=== PATIENT | male | born 1975 | race Caucasian/White ===

== ENCOUNTER → 2021-02-05 10:38 | Outpatient (CLI) | payer MEDICAID, SELFPAY ==
--- NOTE | 2021-02-05 10:43 | ART_ITS ---
Reason For Study: Pain in unspecified lower leg Procedure A bilateral lower extremity continuous wave Doppler with analog waveform analysis,segmental pressures,and ankle brachial indexes with exercise. Left Segmental Pressures Left brachial= 153mmHg. Left posterior tibial artery = 183mmHg. Left dorsalis pedis artery = 174mmHg. Left digit = 149 mmHg. The left dorsalis pedis waveforms are triphasic. The left posterior tibial artery waveforms are triphasic. Right Segmental Pressures Right brachial= 146mmHg. Right posterior tibial artery = 174mmHg. Right dorsalis pedis artery = 181mmHg. Right digit = 127 mmHg. The right dorsalis pedis waveforms are triphasic. The right posterior tibial artery waveforms are triphasic. Indices The right ankle brachial index by the dorsalis pedis is 1.18. The right ankle brachial index by the posterior tibial artery is 1.14. The right digital-brachial index is 0.83. The right post exercise ankle brachial index is 1.32. The left ankle brachial index by the dorsalis pedis is 1.14. The left ankle brachial index by the posterior tibial artery is 1.20. The left digital-brachial index is 0.97. The left post exercise ankle brachial index is 1.27. VL/Lower Ext Art Exam w/ Exercise Interpretation Summary Triphasic Doppler waveforms are noted at ankle level bilaterally. Pulse-volume recordings appear satisfactory at all levels bilaterally, including low-thigh, calf, ankle, and d igital levels. Resting ankle-brachial indices are normal bilaterally. Digital-brachial indices are normal bilaterally. The patient was ambulated on a treadmill for 5 minutes at 2 miles per hour and a 5% grade, following which ankle pressures augmented bilaterally, a normal physiolo gical response. There is no evidence of significant arterial occlusive disease in the lower ext remities bilaterally. Ordering Physician: Alfreda Woods Referring Physician: [facility] Performed By: Kitty Williamson RVT and Student
== END ==
PROVIDERS: Referring Provider Nurse Practitioner Adult Health; Visit Provider Nurse Practitioner Adult Health
DX: M79.669 Pain in unspecified lower leg (principal)
CPT/HCPCS: 93924

== ENCOUNTER → 2021-08-07 11:15 | Outpatient (CLI) | payer MEDICAID, SELFPAY ==
--- NOTE | 2021-08-07 11:19 | EKG12_ITS ---
Test Reason : HYTN Blood Pressure : / mmHG Vent. Rate : 071 BPM Atrial Rate : 071 BPM P-R Int : 134 ms QRS Dur : 098 ms QT Int : 382 ms P-R-T Axes : 019 115 046 degrees QTc Int : 415 ms Normal sinus rhythm Left posterior fascicular block Abnormal ECG Confirmed by MICHELE ELDRIDGE, PRASHANT ([id number]), newspaper managing editor ERIK MARION ([id number]) on 08/08/2021 11:42:00 AM Referred By: Alfreda Woods Confirmed By:PRASHANT BAUTISTA MD
== END ==
PROVIDERS: Referring Provider Nurse Practitioner Adult Health; Visit Provider Nurse Practitioner Adult Health
DX: I10 Essential (primary) hypertension (principal)
CPT/HCPCS: 93005

== ENCOUNTER 2022-05-23 11:00 | Outpatient (RCR) | payer OTHER, MEDICAID, SELFPAY ==
--- NOTE | 2022-04-23 11:56 | HP.OTEVAL_ITS ---
Patient's Visit Information JOSE SÁNCHEZ is a 47 year old M, referred to Occupational Therapy by MAITE Ryan, with a diagnosis of left lateral eipcondylitis. 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 pt states he has not iced his arm- DOI 04/04/22. pt is left handed - pt has worked at [employer] for two years- pt would like to return to his PLOF. - ADLs Miscellaneous: Write Comments: pt states picking up his dtr does hurt - Pain Left elbow 0 Pain Intensity Range: 3 - ROM Elbow: right 0/140 left 0/140 Forearm: right/left WNL - Strength Gold Tooler: right 70# left 20# (with discomfort) Lateral Pinch: right 16# left 10# Tripod Pinch: right 14# left 6# (with pain) Strength Comments: elbow straight right 60# left elbow straight 15#. 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 Goal:: pt will report pain no greater than 3/10 with use of left UE with work tasks by d.c. Goal:: pt will demo understanding of lat. epi precautions by end of 1st session to prevent further injury. - Rehabilitation General Assessment: pt demo with positive symptoms of left lateral eipi- pt demo wtih weakness and pain limiting his IND with ADls and IADLs at this time- and with work tasks. pt would benefit from skilled OT service 2-3x week for 4 weeks to decrease pain- strength left UE and ed. on ergo to prevent injury of left elbow to return pt to his PLOF. pt demo understanding and agrees to POC. Rehabilitation Potential: Good - Anticipated Interventions A/AAROM/PROM, Strengthening, Triggerpoint Release, Modalities, Joint Protection/Energy Conservation, Ergonomic Education, Education re Diagnosis - Visit Plan Frequency: 2-3x /Week Duration: 4 Weeks TEXT: Thank you for the opportunity to evaluate your patient. For Medicare and Medicare HMO plans, please review the plan of care and approve it. It will need to be FAXED BACK to us at [phone] for Medicare purposes. Please let me know if there are questions or concerns regarding this plan of care. Physician Signature: Date:
--- NOTE | 2022-05-23 11:26 | OTREVAL_ITS ---
MAITE Ryan, It has been my pleasure to treat JOSE SÁNCHEZ over the last 10 visits for left lateral eipcondylitis. Please see the progress note below for an update on the occupational therapy plan of care! 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 elbow straight 20# ( with pain). indication of continued symptoms of lat. epi pain. pt admits not consistent with his HEP - but is wearing the braces-. therapy is returning pt to for possible injection due to limited gains in progress and compliance with his HEP. therapist advised to keeping with using the braces and along with shoulder isometrics and eccentric ex. Plan Visits in this POC: 12 Plan: Return to for possible injection due to lingering pain decreasing use of left UE. 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 Goal:: pt will report pain no greater than 3/10 with use of left UE with work tasks by d.c. Goal:: pt will demo understanding of lat. epi precautions by end of 1st session to prevent further injury. Anticipated Interventions Anticipated Interventions: A/AAROM/PROM, Strengthening, Triggerpoint Release, Modalities, Joint Protection/Energy Conservation, Ergonomic Education, Education re Diagnosis Please do not hesitate to contact me at [phone] by phone or if you have questions or concerns regarding this new plan of care! Sincerely, Meghan Thompson, OTR/L, CHT
--- NOTE | 2022-07-16 14:58 | HP.OTDCNRP_ITS ---
JOSE SÁNCHEZ was seen in my office for initial evaluation on 04/23/22. The following Plan of Care was established for this patient: Initial Frequency: 2-3x /Week Initial Duration: 4 Weeks Plan: Return to for possible injection due to lingering pain decreasing use of left UE. Anticipated Interventions: A/AAROM/PROM, Strengthening, Triggerpoint Release, Modalities, Joint Protection/Energy Conservation, Ergonomic Education, Education re Diagnosis This patient was last seen in our office 05/23/22. Pertinent comments regarding their Occupational therapy will appear below: Pt seen for 10 OT sessions with lateral epicondylitis- pt made gains and was imp roving- advised to return to for possible cortisone injection or imaging. pt has not returned at this time and will be d/c due to time lapse in services. At this point I will be discontinuing this patient from occupational therapy. I would be happy to see this patient again in the future if found appropriate by the physician. Thank you! Meghan Thompson, OTR/L, CHT
== END 2022-05-23 19:00 | disposition home or self-care (01) ==
LOC: OT 11:00
PROVIDERS: Referring Provider Physician Assistant; Visit Provider Physician Assistant
DX: M77.12 Lateral epicondylitis, left elbow (principal)
CPT/HCPCS: 97110; 97166; 97530

== ENCOUNTER → 2024-05-17 | Outpatient (CLI) | payer MEDICAID, SELFPAY ==
[2024-05-17 17:07] LABS: Absolute Lymphocyte Count 1.43 X10^3/uL (0.83-4.51); Absolute Neutrophil Count 4.3 X10^3/uL (2.0-7.7); Basophil# 0.04 X10^3/uL; Basophil% 0.6 % (0-1); Eosinophil# 0.08 X10^3/uL; Eosinophils% 1.3 % (0-5); Hematocrit 48.4 % (40-54); Hemoglobin 16.1 g/dL (13.0-16.5); Lymphocyte # 1.43 X10^3/ul (0.83-4.51); Lymphocyte % 22.5 % (19-41); Mean Corp Hgb Conc 33.3 g/dL (32-36); Mean Corpuscular Volume 87.1 fL (80-94); Mean Platelet Vol. 9.2 fl (6.2-12.0); Monocyte# 0.47 X10^3/uL; Monocyte% 7.4 % (0-10); NRBC Flagged by Analyzer 0 % (0-5); Neutrophil # 4.31 X10^3/uL (2.7-7.7); Neutrophil % 67.9 % (47-70); Platelet Count 232 K/mm3 (150-450); RBC Distribution Width CV 13.2 % (11.6-14.6); RBC Distribution Width SD 41.9 fl (35.1-43.9); Red Blood Count 5.56 M/mm3 (4.6-6.2); White Blood Count 6.4 K/mm3 (4.4-11.0)
[2024-05-17 17:27] LABS: Hemoglobin A1c 5.5 % (3.8-5.6)
[2024-05-17 17:34] LABS: ALB/GLOB Ratio 1.1 RATIO (0.9-2.4); AST(SGOT) 33 U/L (15-37); Alanine Aminotransfer ALT/SGPT 60 U/L (16-61); Albumin, Serum 4.1 g/dL (3.2-5.0); Alkaline Phosphatase 61 U/L (45-117); Anion Gap 7 (5-15); BUN 11 mg/dL (7-18); BUN/Creat Ratio 11.7 RATIO (10-20); Calcium,Total 9.5 mg/dL (8.5-10.1); Chloride 108 mmol/L (98-107); Cholesterol 224 mg/dL (200); Creatinine, Serum 0.94 mg/dL (0.70-1.30); EST Glomerular Filtration Rate 92 mL/min (>60); Est Glom Filt Rate - Afr Amer 111 mL/min (>60); Globulin 3.6 g/dL (2.2-4.2); Glucose 101 mg/dL (74-106); High Density Lipoprotein 41 mg/dL; Potassium 3.8 mmol/L (3.5-5.1); Protein, Total 7.7 g/dL (6.4-8.2); Sodium Level 139 mmol/L (136-145); Thyroid Stim Hormone (TSH) 0.523 uIU/mL (0.358-3.740); Triglycerides 142 mg/dL; Very Low Density Lipoprotein 28 mg/dL (5-40)
== END | disposition home or self-care (01) ==
LOC: VSLAB 13:57
PROVIDERS: PCP Nurse Practitioner Family; Visit Provider Nurse Practitioner Family
DX: I10 Essential (primary) hypertension (principal)
CPT/HCPCS: 36415; 80053; 80061; 83036; 84443; 85025

== ENCOUNTER 2024-06-11 17:10 | Emergency (ER) | payer MEDICAID, SELFPAY ==
[2024-06-11] VITALS (8 sets, daily range): BP systolic 148–193; BP diastolic 84–118; PULSE 57–79; RESP 16–18; TEMP 36.6; O2SAT 97–100; BMI 32.8
--- NOTE | 2024-06-11 17:18 | EKG12_ITS ---
Test Reason : CP Blood Pressure : / mmHG Vent. Rate : 069 BPM Atrial Rate : 069 BPM P-R Int : 120 ms QRS Dur : 096 ms QT Int : 392 ms P-R-T Axes : -01 108 049 degrees QTc Int : 420 ms Normal sinus rhythm Rightward axis Borderline ECG Confirmed by MICHELE ELDRIDGE, PRASHANT ([id number]), proposal editor CHIRAG CARRASCO ([id number]) on 06/13/2024 9:39:14 AM Referred By: PIPPA/TA Confirmed By:PRASHANT BAUTISTA MD
--- NOTE | 2024-06-11 17:18 | RAD_ITS ---
EXAM: XR CHEST, 1 VIEW CLINICAL INDICATION: chest pain TECHNIQUE: Frontal view of the chest. COMPARISON: No relevant prior studies available. FINDINGS: LUNGS AND PLEURAL SPACES: Unremarkable. No consolidation or edema. No pneumothorax. No effusion. HEART: Unremarkable. Cardiac silhouette not enlarged. MEDIASTINUM: Central airways and mediastinal contour are unremarkable. BONES/JOINTS: Unremarkable. No acute fracture. SOFT TISSUES: Unremarkable. RAD/Chest 1 View (Portable) IMPRESSION: No radiographic evidence of acute cardiopulmonary disease. Electronically Signed: Elizabeth Tobar MD at 19:50 EDT ,
--- NOTE | 2024-06-11 17:27 | ED.VIS.CHEST ---
HPI History of Present Illness Chief Complaint: Chest Pain [facility] Medical History Abnormal EKG Anxiety and depression Erectile dysfunction Essential hypertension Hyperlipidemia Left lateral epicondylitis Multiple sclerosis Home Medications ?Medication ?Instructions ?Recorded ?Last Taken ?Type lisinopril 30 mg tablet 30 mg PO DAILY 05/26/22 Unknown History bupropion HCl 150 mg 24 hr tablet, 150 mg PO DAILY 06/11/24 Unknown History extended release Allergy/AdvReac Type Severity Reaction Status Date / Time No Known Allergies Allergy Verified 06/11/24 17:11 Social History Smoking Status: Current every day smoker tobacco type: cigarettes substance use type: former substance user and methamphetamine EXAM Physical Exam Const Vital Signs: 06/11/24 17:11 06/11/24 17:32 06/11/24 17:36 Temperature 97.9 F Temperature Source Temporal Pulse Rate 79 68 Respiratory Rate 18 Blood Pressure 193/110 H 148/118 H Blood Pressure Mean 137 Pulse Ox 100 99 Oxygen Delivery Method Room Air Room Air 06/11/24 17:42 06/11/24 18:11 06/11/24 18:58 Temperature Temperature Source Pulse Rate 72 58 L 66 Respiratory Rate 16 16 16 Blood Pressure 162/102 H 148/84 H 155/99 H Blood Pressure Mean 122 105 117 Pulse Ox 97 99 98 Oxygen Delivery Method Room Air Room Air Room Air 06/11/24 19:30 Temperature Temperature Source Pulse Rate 57 L Respiratory Rate 16 Blood Pressure 155/99 H Blood Pressure Mean 117 Pulse Ox 98 Oxygen Delivery Method Room Air MDM MDM MDM Narrative Medical decision making narrative: HISTORY OF PRESENT ILLNESS: 49-year-old male presents with chest pain. He states is more like left arm pain. Notes it started after taking his blood pressure yesterday. Notes his blood pressure was in the 170s systolic over 110s diastolic. States been compliant with his home lisinopril. Denies family history of early cardiac . Denies diabetes but endorses hypertension hyperlipidemia. Denies PE risk factors. The patient denies recent surgery in the last 4 weeks or immobilization in the last 3 days, denies previous diagnosis of DVT or PE, hemoptysis, unilateral leg swelling or malignancy with treatment the last 6 months or palliative. No estrogen use noted. Denies aortic dissection risk factors. Patient denies sudden onset of pain, no tearing sensation, no migratory symptoms, no new numbness, weakness or loss of sensation. Patient denies family history or personal history of Connective tissue disorders (Marfan's Syndrome, Matt Danlos etc). Denies any bleeding diathesis. Cough. Shortness of breath. REVIEW OF SYSTEMS: Pertinent positives: Chest pain Pertinent negatives: Focal weakness, leg swelling, cough, shortness of breath, vomiting PHYSICAL EXAM: Nursing triage notes reviewed, Vital signs reviewed Constitutional: please see mdm HENT: MMM Eyes: Pupils equal round and reactive to light, Extraocular muscles intact Neck: No stridor, no JVD, full neck ROM Lungs: Clear to auscultation, No wheezing or rales. No increased work of breathing, no conversational dyspnea, no accessory muscle use, no nasal flaring. No respiratory distress noted Heart: Regular rate and rhythm, No murmurs, No rubs and No gallops, 2+ distal pulses (radial, femoral, posterior tibial) in all extremities Abdomen: Soft, there is no tenderness, rigidity, rebound or guarding, no obvious peritoneal signs, no palpable pulsatile abdominal masses, no auscultated abdominal bruit : No CVAT Extremities: No edema Neuro: No focal neurological deficits, cranial nerves II through XII intact, 5/5 strength in all extremities. Intact sensation to light touch in all extremities, 2+ reflexes bilateral patella tendons. Normal gait. No ataxia. Skin: No rash or lesions noted MEDICAL DECISION MAKING: Chief Complaint: Chest pain External records reviewed: Reviewed prior cardiology notes, reviewed allergies, problem list, vital signs, medications Factors affecting care: hypertension, hyperlipidemia Social determinants of health: Denies illicit drug use, tobacco History obtained from others: none Consults: none [facility] Narrative: The patient was initially hypertensive with a blood pressure 193/110 otherwise afebrile and nontoxic-appearing. Exam without focal cardiopulmonary normalities but no pulse deficits or neurologic deficits noted on initial exam. I considered the following differential diagnosis: ACS, arrhythmia, anemia, pneumonia, pneumothorax, PE, aortic dissection The patient's history and clinical exam were not consistent with PE or aortic dissection given lack of historical or physical exam findings to suggest these emergent diagnoses. I obtained a broad lab and imaging workup to further elucidate the etiology of the patient's complaints specifically ruling out signs of ACS, arrhythmia, anemia, pneumonia, pneumothorax, electrolyte disturbance or dehydration. I treat the patient initially with sublingual nitroglycerin ALL IMAGES (IF OBTAINED) HAVE BEEN PERSONALLY REVIEWED AND INTERPRETED BY MYSELF. EKG with normal sinus rhythm, normal axis, normal intervals, no STEMI CBC without leukocytosis, severe anemia, no thrombocytopenia. BMP without evidence of significant electrolyte abnormalities, no anion gap, no acute kidney injury. High-sensitivity troponin is negative, no evidence of myocardial ischemiax2 The synthesis of the patient's history, physical exam, labs images suggest no acute life-limiting etiology. Repeat blood pressure improved to 155/99 The patient and/or family, caregivers express understanding. The patient and/or family, caregivers agrees with the plan. Shared decision making: I will have a discussion with the patient and or visitors regarding risk/benefits of further testing or admission. They will be made aware of of the risk/benefits inherent in this decision they will be given the opportunity to voice understanding. Total critical care time today provided was at least 0 minutes. This excludes separately billable procedures. Critical care time (if documented) is secondary to the patient having high probability of clinically significant/life threatening deterioration in the patient's condition which required my urgent intervention. Impression: 1. Chest pain 2. History of hyperlipidemia 3. History of hypertension Dispo: Discharge home This note was generated with [employer] dictation software. It may contain incorrect words, spelling, and punctuation that were not noted in review of the chart prior to signing. Lab Data Labs: Laboratory Results - last 24 hr 06/11/24 06/11/24 17:40 19:59 WBC 6.9 RBC 5.45 Hgb 16.1 Hct 47.0 MCV 86.2 MCH 29.5 MCHC 34.3 RDW Std Deviation 39.8 RDW Coeff of Kev 12.9 Plt Count 255 MPV 9.2 Immature Gran % (Auto) 0.400 Neut % (Auto) 53.8 Lymph % (Auto) 33.5 Burnet % (Auto) 8.7 Eos % (Auto) 2.9 Baso % (Auto) 0.7 Absolute Neuts (auto) 3.7 Absolute Lymphs (auto) 2.30 Nucleated RBC % 0 Sodium 140 Potassium 3.6 Chloride 110 H Carbon Dioxide 25.0 Anion Gap 5 BUN 18 Creatinine 1.07 Estim Creat Clear Calc 96.81 Est GFR (MDRD) Af Amer 95 Est GFR (MDRD) Non-Af 79 BUN/Creatinine Ratio 16.8 Glucose 118 H Calcium 8.8 Troponin I High Sens 10 10 Radiography Diagnostic Testing: Clinical Impression(s) from Imaging Studies Chest X-Ray 06/11/24 17:18 IMPRESSION: No radiographic evidence of acute cardiopulmonary disease. Electronically Signed: Elizabeth Tobar MD at 19:50 EDT Reading Location ID and State: [facility] [place] Tel , Service support , Discharge Plan Triage Chief Complaint: Chest Pain ED Provider: Geovanni Wang Dx/Rx/DC Orders Instructions: ED Chest Pain, Uncertain Cause Prescriptions: No Action lisinopril 30 mg tablet 30 mg PO DAILY bupropion HCl 150 mg tablet extended release 24 hr 150 mg PO DAILY Primary Care Provider: Stephanie Chairez Referrals: Stephanie Chairez, DEPARTMENT OF SOCIOLOGY CHAIR-C [Primary Care Provider] - Activity Restrictions/Additional Instructions: Thank you for trusting us with your care today! Your labs images were unremarkable. No signs of heart attack. Your blood pressure improved without significant intervention. Please take Tylenol (2 pills, 650 mg), ibuprofen (2 pills, 400 mg) every 6 hours as needed for pain and fever control. Please return to the emergency department if your symptoms change or worsen. Specifically develop chest pain, if you lose consciousness, develop focal numbness weakness or loss of sensation, if you develop vomiting. Please follow with your primary care physician for further outpatient evaluation and management. Specifically outpatient stress test, Holter monitoring were additional ancillary testing to further clarify your symptoms today Print Language: Lao Disposition Disposition: Home, Self Care
--- OUTSIDE RECORDS SUMMARY | 2024-06-11 17:33 | XMS RPT_ITS | CCD ---
Author Organization [facility] Results Test Name Value Interpretation Reference Range Facility 25(OH)D3 [facility] 2021 25-hydroxyvitamin D3 [Mass/Vol] 65.7 ng/mL Normal 31.0-80.[address] [facility] Comment on above: Order Comment: Hilda rodriguez Type: BLOOD SPECIMEN Ordering Facility: External Submitter Address: , , Result Comment: Clas sification of 25 OH Vitamin D status: Deficiency/Insufficiency: < or = 30 ng/ml. Sufficiency/Optimal Levels: 31-80 ng/mL Toxicity: > 100 ng/mL. Test performed by chemiluminescent immunoassay. Performed By: #### 1 989-3 #### [facility] CLIA [id number] [address] [place] [address] [place] CBC W Auto Differential pane l (Bld)on 02-20-2022 Basophils (Bld) [#/Vol] 0.05 10*3/uL Normal <0.[address] [facility] Comment on above: Order Comment: Hilda rodriguez Type: BLOOD SPECIMEN Ordering Facility: External Submitter Address: , , Performed By: #### 5 7021-8 #### [facility] CLIA [id number] [address] [place] [address] [place] Basophils/100 WBC (Bld) 0.8 % Normal [facility] Comment on above: Order Comment: Hilda rodriguez Type: BLOOD SPECIMEN Ordering Facility: External Submitter Address: , , Performed By: #### 5 7021-8 #### [facility] CLIA [id number] [address] [place] [address] [place] Differential cell count method Nom (Bld) Auto Normal [facility] Comment on above: Order Comment: Speci men Type: BLOOD SPECIMEN Ordering Facility: External Submitter Address: , , Performed By: #### 5 7021-8 #### [facility] CLIA [id number] [address] [place] [address] [place] Eosinophils (Bld) [#/Vol] 0.20 10*3/uL Normal <0.[address] [facility] Comment on above: Order Comment: Speci men Type: BLOOD SPECIMEN Ordering Facility: External Submitter Address: , , Performed By: #### 5 7021-8 #### [facility] CLIA [id number] [address] [place] [address] [place] Eosinophils/100 WBC (Bld) 3.4 % Normal [facility] Comment on above: Order Comment: Speci men Type: BLOOD SPECIMEN Ordering Facility: External Submitter Address: , , Performed By: #### 5 7021-8 #### [facility] CLIA [id number] [address] [place] [address] [place] Erythrocyte distribution width (RBC) [Ratio] 12.7 % Normal 11.5-15.[address] [facility] Comment on above: Order Comment: Speci men Type: BLOOD SPECIMEN Ordering Facility: External Submitter Address: , , Performed By: #### 5 7021-8 #### [facility] CLIA [id number] [address] [place] [address] [place] Hematocrit (Bld) [Volume fraction] 50.8 % Normal 39.0-51.[address] [facility] Comment on above: Order Comment: Speci men Type: BLOOD SPECIMEN Ordering Facility: External Submitter Address: , , Performed By: #### 5 7021-8 #### [facility] CLIA [id number] [address] [place] [address] [place] Hemoglobin (Bld) [Mass/Vol] 16.7 g/dL Normal 13.0-17.[address] [facility] Comment on above: Order Comment: Speci men Type: BLOOD SPECIMEN Ordering Facility: External Submitter Address: , , Performed By: #### 5 7021-8 #### [facility] CLIA [id number] [address] [place] [address] [place] IMMATURE GRAN % 0.3 % Normal [facility] Comment on above: Order Comment: Speci men Type: BLOOD SPECIMEN Ordering Facility: External Submitter Address: , , Performed By: #### 5 7021-8 #### [facility] CLIA [id number] [address] [place] [address] [place] IMMATURE GRAN ABS <0.03 Normal <0.10 [facility] Comment on above: Order Comment: Speci men Type: BLOOD SPECIMEN Ordering Facility: External Submitter Address: , , Performed By: #### 5 7021-8 #### [facility] CLIA [id number] [address] [place] [address] [place] Lymphocytes (Bld) [#/Vol] 2.23 10*3/uL Normal 1.00-4.[address] [facility] Comment on above: Order Comment: Speci men Type: BLOOD SPECIMEN Ordering Facility: External Submitter Address: , , Performed By: #### 5 7021-8 #### [facility] CLIA [id number] [address] [place] [address] [place] Lymphocytes/100 WBC (Bld) 37.7 % Normal [facility] Comment on above: Order Comment: Speci men Type: BLOOD SPECIMEN Ordering Facility: External Submitter Address: , , Performed By: #### 5 7021-8 #### [facility] CLIA [id number] [address] [place] [address] [place] MCH (RBC) [Entitic mass] 29.4 pg Normal 26.0-34.[address] [facility] Comment on above: Order Comment: Speci men Type: BLOOD SPECIMEN Ordering Facility: External Submitter Address: , , Performed By: #### 5 7021-8 #### [facility] CLIA [id number] [address] [place] [address] [place] MCHC (RBC) [Mass/Vol] 32.9 g/dL Normal 30.5-36.0 [facility] Comment on above: Order Comment: Speci men Type: BLOOD SPECIMEN Ordering Facility: External Submitter Address: , , Performed By: #### 5 7021-8 #### [facility] CLIA [id number] [address] [place] [address] [place] MCV (RBC) [Entitic vol] 89.4 fL Normal 80.0-100.[address] [facility] Comment on above: Order Comment: Speci men Type: BLOOD SPECIMEN Ordering Facility: External Submitter Address: , , Performed By: #### 5 7021-8 #### [facility] CLIA [id number] [address] [place] [address] [place] Monocytes (Bld) [#/Vol] 0.41 10*3/uL Normal <0.[address] [facility] Comment on above: Order Comment: Speci men Type: BLOOD SPECIMEN Ordering Facility: External Submitter Address: , , Performed By: #### 5 7021-8 #### [facility] CLIA [id number] [address] [place] [address] [place] Monocytes/100 WBC (Bld) 6.9 % Normal [facility] Comment on above: Order Comment: Speci men Type: BLOOD SPECIMEN Ordering Facility: External Submitter Address: , , Performed By: #### 5 7021-8 #### [facility] CLIA [id number] [address] [place] [address] [place] Neutrophils (Bld) [#/Vol] 3.00 10*3/uL Normal 1.45-7.[address] [facility] Comment on above: Order Comment: Speci men Type: BLOOD SPECIMEN Ordering Facility: External Submitter Address: , , Performed By: #### 5 7021-8 #### [facility] CLIA [id number] [address] [place] [address] [place] Neutrophils/100 WBC (Bld) 50.9 % Normal [facility] Comment on above: Order Comment: Speci men Type: BLOOD SPECIMEN Ordering Facility: External Submitter Address: , , Performed By: #### 5 7021-8 #### [facility] CLIA [id number] [address] [place] [address] [place] Nucleated RBC (Bld) [#/Vol] 10*3/uL Normal <0.[address] [facility] Comment on above: Order Comment: Speci men Type: BLOOD SPECIMEN Ordering Facility: External Submitter Address: , , Performed By: #### 5 7021-8 #### [facility] CLIA [id number] [address] [place] [address] [place] Nucleated RBC/100 WBC (Bld) [Ratio] 0.0 /100 WBC Normal [facility] Comment on above: Order Comment: Speci men Type: BLOOD SPECIMEN Ordering Facility: External Submitter Address: , , Performed By: #### 5 7021-8 #### [facility] CLIA [id number] [address] [place] [address] [place] Platelet mean volume (Bld) [Entitic vol] 9.5 fL Normal 9.0-12.[address] [facility] Comment on above: Order Comment: Speci men Type: BLOOD SPECIMEN Ordering Facility: External Submitter Address: , , Performed By: #### 5 7021-8 #### [facility] CLIA [id number] [address] [place] [address] [place] Platelets (Bld) [#/Vol] 264 10*3/uL Normal 150-[address] [facility] Comment on above: Order Comment: Speci men Type: BLOOD SPECIMEN Ordering Facility: External Submitter Address: , , Performed By: #### 5 7021-8 #### [facility] CLIA [id number] [address] [place] [address] [place] RBC (Bld) [#/Vol] 5.68 10*6/uL Normal 4.20-6.00 [facility] Comment on above: Order Comment: Speci men Type: BLOOD SPECIMEN Ordering Facility: External Submitter Address: , , Performed By: #### 5 7021-8 #### [facility] CLIA [id number] [address] [place] [address] [place] WBC (Bld) [#/Vol] 5.91 10*3/uL Normal 3.70-11.00 [facility] Comment on above: Order Comment: Speci men Type: BLOOD SPECIMEN Ordering Facility: External Submitter Address: , , Performed By: #### 5 7021-8 #### [facility] CLIA [id number] [address] [place] [address] [place] Comprehensive metabolic 2000 panelon 02-20-2022 Albumin [Mass/Vol] 4.3 g/dL Normal 3.9-4.9 [facility] Comment on above: Order Comment: Speci men Type: BLOOD SPECIMEN Ordering Facility: External Submitter Address: , , Performed By: #### 2 4323-8, 02026-7 #### [facility] CLIA [id number] [address] [place] [address] [place] ALP [Catalytic activity/Vol] 60 U/L Normal 38-[address] [facility] Comment on above: Order Comment: Speci men Type: BLOOD SPECIMEN Ordering Facility: External Submitter Address: , , Performed By: #### 2 4323-8, 37865-8 #### [facility] CLIA [id number] [address] [place] [address] [place] ALT [Catalytic activity/Vol] 26 U/L Normal 10-[address] [facility] Comment on above: Order Comment: Speci men Type: BLOOD SPECIMEN Ordering Facility: External Submitter Address: , , Performed By: #### 2 4323-8, #### [facility] CLIA [id number] [address] [place] [address] [place] Anion gap [Moles/Vol] 11 mmol/L Normal 9-18 [facility] Comment on above: Order Comment: Speci men Type: BLOOD SPECIMEN Ordering Facility: External Submitter Address: , , Performed By: #### 2 432-8, #### [facility] CLIA [id number] [address] [place] [address] [place] AST [Catalytic activity/Vol] 23 U/L Normal 14-[address] [facility] Comment on above: Order Comment: Speci men Type: BLOOD SPECIMEN Ordering Facility: External Submitter Address: , , Performed By: #### 2 432-8, #### [facility] CLIA [id number] [address] [place] [address] [place] Bilirubin [Mass/Vol] 0.4 mg/dL Normal 0.2-1.3 [facility] Comment on above: Order Comment: Speci men Type: BLOOD SPECIMEN Ordering Facility: External Submitter Address: , , Performed By: #### 2 4323-8, #### [facility] CLIA [id number] [address] [place] [place] [address] [place] Calcium [Mass/Vol] 9.5 mg/dL Normal 8.5-10.2 [facility] Comment on above: Order Comment: Speci men Type: BLOOD SPECIMEN Ordering Facility: External Submitter Address: , , Performed By: #### 2 4323-8, #### [facility] CLIA [id number] [address] [place] [address] [place] Chloride [Moles/Vol] 104 mmol/L Normal 97-105 [facility] Comment on above: Order Comment: Speci men Type: BLOOD SPECIMEN Ordering Facility: External Submitter Address: , , Performed By: #### 2 4323-8, #### [facility] CLIA [id number] [address] [place] [address] [place] CO2 [Moles/Vol] 25 mmol/L Normal 22-[address] [facility] Comment on above: Order Comment: Speci men Type: BLOOD SPECIMEN Ordering Facility: External Submitter Address: , , Performed By: #### 2 4323-8, #### [facility] CLIA [id number] [address] [place] [address] [place] Creatinine [Mass/Vol] 0.94 mg/dL Normal 0.73-1.22 [facility] Comment on above: Order Comment: Speci men Type: BLOOD SPECIMEN Ordering Facility: External Submitter Address: , , Performed By: #### 2 4323-8, #### [facility] CLIA [id number] [address] [place] [address] [place] ESTIMATED GLOMERULAR FILTRATION RATE 103 mL/min/1.73m??? Normal >=[address] [facility] Comment on above: Order Comment: Speci men Type: BLOOD SPECIMEN Ordering Facility: External Submitter Address: , , Result Comment: Edie mated Glomerular Filtration Rate (eGFR) is calculated using the 2020 CKD-EPI creatinine equation. This equation utilizes serum creatinine, sex, and age as parameters. The creatinine assay has traceable calibration to isotope dilution-mass spectrometry. Refer to KDIGO guidelines for clinical interpretation. In patients with unstable renal function, e.g. those with acute kidney injury, the eGFR may not accurately reflect actual GFR. Performed By: #### 2 4323-8, #### [facility] CLIA [id number] [address] [place] [address] [place] Glucose [Mass/Vol] 96 mg/dL Normal 74-99 [facility] Comment on above: Order Comment: Hilda rodriguez Type: BLOOD SPECIMEN Ordering Facility: External Submitter Address: , , Result Comment: The [place] Diabetes Association (ADA) provides guidance for cutoff values for fasting glucose and random glucose. The ADA defines fasting as no caloric intake for at least 8 hours. Fasting plasma glucose results between 100 to 125 mg/dL indicate increased risk for diabetes (prediabetes). Fasting plasma glucose results greater than or equal to 126 mg/dL meet the criteria for diagnosis of diabetes. In the absence of unequivocal hyperglycemia, results should be confirmed by repeat testing. In a patient with classic symptoms of hyperglycemia or hyperglycemic crisis, random plasma glucose results greater than or equal to 200 mg/dL meet the criteria for diagnosis of diabetes. Reference: Standards of Medical Care in Diabetes 2016, [place] Diabetes Association. Diabetes Care. 2016.39(Suppl 1). Performed By: #### 2 4323-8, 87219-9 #### [facility] CLIA [id number] [address] [place] [address] [place] Potassium [Moles/Vol] 4.7 mmol/L Normal 3.7-5.1 [facility] Comment on above: Order Comment: Hilda rodriguez Type: BLOOD SPECIMEN Ordering Facility: External Submitter Address: , , Performed By: #### 2 4323-8, #### [facility] CLIA [id number] [address] [place] [place] [id number] [place] Protein [Mass/Vol] 6.9 g/dL Normal 6.3-8.0 [facility] Comment on above: Order Comment: Hilda rodriguez Type: BLOOD SPECIMEN Ordering Facility: External Submitter Address: , , Performed By: #### 2 4323-8, #### [facility] CLIA [id number] [address] [place] [id number] [place] Sodium [Moles/Vol] 140 mmol/L Normal 136-144 [facility] Comment on above: Order Comment: Hilda rodriguez Type: BLOOD SPECIMEN Ordering Facility: External Submitter Address: , , Performed By: #### 2 4323-8, 19245-9 #### [facility] CLIA [id number] [address] [place] [address] [place] Urea nitrogen [Mass/Vol] 16 mg/dL Normal 9-[address] [facility] Comment on above: Order Comment: Hilda [facility] Type: BLOOD SPECIMEN Ordering Facility: External Submitter Address: , , Performed By: #### 2 4323-8, 54955-4 #### [facility] CLIA [id number] [address] [place] [address] [place] HbA1c (Bld)on 02-20-2022 Average glucose Estimated from glycated hemoglobin (Bld) [Mass/Vol] 111 mg/dL Normal [facility] Comment on above: Order Comment: Hilda rodriguez Type: BLOOD SPECIMEN Ordering Facility: External Submitter Address: , , Result Comment: eAG: (Estimated average glucose) is a calculated value from HgbA1c and is hobbies and crafts sales representative of the average blood glucose level in the last 2-3 month period. Performed By: #### 5 5454-3 #### [facility] CLIA [id number] [address] [place] [address] [place] HbA1c (Bld) [Mass fraction] 5.5 % Normal 4.3-5.[address] [facility] Comment on above: Order Comment: Hilda [facility] Type: BLOOD SPECIMEN Ordering Facility: External Submitter Address: , , Result Comment: [place] Diabetes Association guidelines indicate that patients with HgbA1c in the range 5.7-6.4% are at increased risk for development of diabetes, and intervention by lifestyle modification may be beneficial. HgbA1c greater or equal to 6.5% is considered diagnostic of diabetes. Performed By: #### 5 5454-3 #### [facility] CLIA [id number] [address] [place] [address] [place] Lipid 1996 panelon 2 Cholesterol [Mass/Vol] 163 mg/dL Normal <[address] [facility] Comment on above: Order Comment: Hilda men Type: BLOOD SPECIMEN Ordering Facility: External Submitter Address: , , Result Comment: <200 mg/dL, Desirable 200-239 mg/dL, Borderline high >239 mg/dL, High Performed By: #### 2 4323-8, #### [facility] CLIA [id number] [address] [place] [address] [place] Cholesterol in HDL [Mass/Vol] 28 mg/dL Low >[address] [facility] Comment on above: Order Comment: Hilda men Type: BLOOD SPECIMEN Ordering Facility: External Submitter Address: , , Result Comment: 40-5 9 mg/dL, Acceptable >59 mg/dL, High: Negative risk factor for coronary heart disease <40 mg/dL, Low: Positive risk factor for coronary heart disease Performed By: #### 2 4323-8, #### [facility] CLIA [id number] [address] [place] [address] [place] Cholesterol in LDL [Mass/Vol] 106 mg/dL High <[address] [facility] Comment on above: Order Comment: Hilda [facility] Type: BLOOD SPECIMEN Ordering Facility: External Submitter Address: , , Result Comment: <100 mg/dL, Optimal 100-129 mg/dL, Near optimal/above optimal 130-159 mg/dL, Borderline high 160-189 mg/dL, High >189 mg/dL, Very high Secondary prevention optimal LDL Cholesterol levels are recommended to be < 70 mg/dL Performed By: #### 2 4323-8, #### [facility] CLIA [id number] [address] [place] [address] [place] Cholesterol in LDL/Cholesterol in HDL [Mass ratio] 3.79 {ratio} High <2.[address] [facility] Comment on above: Order Comment: Jonathangemma rodriguez Type: BLOOD SPECIMEN Ordering Facility: External Submitter Address: , , Result Comment: Refe rence: 1. National Cholesterol Education Program ATP III Guideline At-A-Glance Quick Desk Reference: National Heart, Lung, and Blood [place]. National Institutes of Health. 2001: NIH Publication No. 01-3305. 2. An International Atherosclerosis Society position paper: global recommendations for the management of dyslipidemia: executive summary, Atherosclerosis. 2014: 232(2):410-413. Performed By: #### 2 4323-8, 54226-4 #### [facility] CLIA [id number] [address] [place] [address] [place] Cholesterol in VLDL [Mass/Vol] 29 mg/dL Normal <[address] [facility] Comment on above: Order Comment: Jonathani men Type: BLOOD SPECIMEN Ordering Facility: External Submitter Address: , , Performed By: #### 2 4323-8, #### [facility] CLIA [id number] [address] [place] Cholesterol non HDL [Mass/Vol] 135 mg/dL High <[address] [facility] Comment on above: Order Comment: Hilda rodriguez Type: BLOOD SPECIMEN Ordering Facility: External Submitter Address: , , Result Comment: <130 mg/dL, Optimal 130-159 mg/dL, Near optimal/above optimal 160-189 mg/dL, Borderline high 190-219 mg/dL, High >219 mg/dL, Very high Secondary prevention optimal non HDL Cholesterol levels are recommended to be <100 mg/dL Performed By: #### 2 4323-8, 85075-2 #### [facility] CLIA [id number] [address] [place] [address] [place] Cholesterol.total/Cho lesterol in HDL [Mass ratio] 5.82 {ratio} High <5.[address] [facility] Comment on above: Order Comment: Hilda rodriguez Type: BLOOD SPECIMEN Ordering Facility: External Submitter Address: , , Performed By: #### 2 4323-8, 68294-0 #### [facility] CLIA [id number] [address] [place] FASTING TIME 12 hrs Normal [facility] Comment on above: Order Comment: Hilda rodriguez Type: BLOOD SPECIMEN Ordering Facility: External Submitter Address: , , Performed By: #### 2 4323-8, 48443-2 #### [facility] CLIA [id number] [facility] [place] [address] [place] Triglyceride [Mass/Vol] 147 mg/dL Normal <[address] [facility] Comment on above: Order Comment: Speci men Type: BLOOD SPECIMEN Ordering Facility: External Submitter Address: , , Result Comment: <150 mg/dL, Normal 150-199 mg/dL, Borderline high 200-499 mg/dL, High >499 mg/dL, Very high Performed By: #### 2 4323-8, 31268-0 #### [facility] CLIA [id number] [address] [place] [address] [place] THYROID STIMULATING IMMUNOGL OBULIN BLOODon 02-20-2022 Thyroid stimulating immunoglobulins actual/normal (S) [Relative mass conc] % Normal <0.[address] [facility] Comment on above: Order Comment: Speci men Type: BLOOD SPECIMEN Ordering Facility: External Submitter Address: , , Result Comment: Thyr oid Stimulating Immunoglobulin test is used as an aid in diagnosis of autoimmune hyperthyroidism especially in patients with Grave's orbitopathy and dermopathy. Low positive TSH receptor stimulating antibody levels may occasionally be found in patients with autoimmune hypothyroidism. Clinical correlation is required. Performed By: #### T SIGIM #### [facility] CLIA [id number] [address] [place] [address] [place] TSI QUALITATIVE Negative Normal Negative [facility] Comment on above: Order Comment: Hilda rodriguez Type: BLOOD SPECIMEN Ordering Facility: External Submitter Address: , , Performed By: #### T SIGIM #### [facility] CLIA [id number] [address] [place] [address] [place] Testosterone, Tot/Fron 08-12 Testosterone [Mass/Vol] 865 ng/dL Normal 240-950 [facility] Comment on above: Performed By: #### L IPB, TFTEST #### [facility] Routine Lab [address] [place] [address] Testosterone, Free 16.4 ng/dL Normal 4.46-17.1 [facility] Reference Lab Comment on above: Performed By: #### L IPB, TFTEST #### [facility] Routine Lab [address], [place] [address] Lipid Panel, Basicon 08-08-2 021 Cholesterol [Mass/Vol] 202 mg/dL High <200 [facility] Comment on above: Performed By: #### L IPB, TFTEST #### [facility] Routine Lab [address], [place] [address] Cholesterol in HDL [Mass/Vol] 27 mg/dL Low >39 [facility] Reference Lab Comment on above: Performed By: #### L IPB, TFTEST #### [facility] Routine Lab [address], [place] [address] Cholesterol in LDL [Mass/Vol] 133 mg/dL High <100 [facility] Comment on above: Performed By: #### L IPB, TFTEST #### [facility] Routine Lab [address], [place] [address] Cholesterol in VLDL [Mass/Vol] 42 mg/dL High <30 [facility] Comment on above: Performed By: #### L IPB, TFTEST #### [facility] Routine Lab [address], [place] [address] Cholesterol non HDL [Mass/Vol] 175 mg/dL High <130 [facility] Comment on above: Performed By: #### L IPB, TFTEST #### [facility] Routine Lab [address], [place] [address] LDL:HDL Ratio 4.93 High <2.54 [facility] Reference Lab Comment on above: Performed By: #### L IPB, TFTEST #### [facility] Routine Lab [address], [place] [address] TC:HDL Ratio 7.48 High <5.10 [facility] Comment on above: Performed By: #### L IPB, TFTEST #### [facility] Routine Lab [address], [place] [id number] Triglyceride [Mass/Vol] 211 mg/dL High <150 [facility] Comment on above: Performed By: #### L IPB, TFTEST #### [facility] Routine Lab [address], [place] [address] Fasting Time UN Normal [facility] Comment on above: Performed By: #### L IPB, TFTEST #### [facility] Routine Lab [address], [place] [address] CNOVon 03-27-2021 CNOV Office Visit ([facility] ) JOSE SÁNCHEZ ([id number]) 1975 M Date Time Provider Department 03/27/21 10:15 AM [facility] During your visit today, we recorded the following information about you: Temperature Pulse Respiration Blood pressure 98 degrees 76/minute 18/minute 152/100 Weight 102.2 kg Tamanna Dixon APRN.CNP 03/27/2021 10:24 AM Signed ASSESSMENT/PLAN: 1. Other acute nonsuppurative otitis media of left ear, recurrence not specified - ICD9: 381.00, ICD10: H65.192 - Will begin treatment with Amoxicillin for 10 days - Supportive care with plenty of fluids, rest, and analgesia prn. - AMOXICILLIN 875 MG TABLET - Follow-up with your PCP in 3-5 days if symptoms have not improved or sooner if symptoms worsen - Discussed red flags and need for immediate medical evaluation if any occur. - Discussed supportive care treatment with fluids, rest and analgesia. - Discussed expected course of illness Tamanna Praisler-Wood, HOME CARE NURSE.BORING MILL OPERATOR OTITIS MEDIA GENERAL INFORMATION: Otitis media is an infection of the middle ear. The middle ear sits behind the eardrum. This infection may be caused by a virus or bacteria and often follows a cold. Children often have repeat ear infections. Otitis media is not contagious. INSTRUCTIONS: 1. An antibiotic has been prescribed. It should be taken exactly as prescribed. Do not stop the medicine even if the symptoms go away. 2. Vuvn-tga-opdiizl pain medication may be taken or other pain medication as prescribed by the doctor. 3. Nothing should be placed in the ear unless instructed by your doctor. 4. The patient may return to school/daycare or work when the temperature is normal (98.6 F or 37 C). 5. The patient should not swim while the ear is infected. CONTACT YOUR DOCTOR IF YOU OR YOUR CHILD: 1. Does not feel better within 36 hours. 2. Develops a temperature over 102E F (39E C). 3. Starts vomiting or has diarrhea. 4. Develops drainage from the affected ear. 5. Has any new problem that may be related to the medicine prescribed. RETURN TO THE ED IF: 1. You or your child has a severe headache or pain around the ear. 2. You or your child notice swelling around the ear. 3. You or your child has a seizure (convulsion), twitching of the facial muscles, or passes out. 4. You or your child is dizzy, has a stiff neck, or cannot walk or talk normally. 5. Your child becomes more irritable or listless (not interested in his or her surroundings, does not get soothed by you holding him or her). Tamanna Dixon APRN.CHAD 03/27/2021 10:31 AM Signed Subjective HPI Jose Sánchez is a 45 year old male who presents with left ear pain, tinnitus, decreased hearing for the last 3 days. Has had an occasional cough. and daughter currently ill with URI symptoms. He states the pain is not that bad . He has not taken any medication at home today. Review of Systems Constitutional: Negative for chills and fever. HENT: Positive for ear pain, hearing loss and tinnitus. Negative for congestion and sore throat. Respiratory: Positive for cough. Negative for shortness of breath. Cardiovascular: Negative for chest pain. Gastrointestinal: Negative for diarrhea, nausea and vomiting. Musculoskeletal: Negative for myalgias. Skin: Negative for itching and rash. Neurological: Negative for headaches. BP 152/100 Pulse 76 Temp 36.7 ?C (98 ?F) (Tympanic) Resp 18 Wt 102.2 kg (225 lb 3.2 oz) SpO2 98% BMI 34.24 kg/m? PAST MEDICAL HISTORY Diagnosis Date - Anxiety 2012 - HTN (hypertension) 2012 - MS (multiple sclerosis) (HCC) PAST SURGICAL HISTORY Procedure Laterality Date - NONE ALLERGIES Patient has no known allergies. MEDICATIONS cholecalciferol, Vitamin D3, (VITAMIN D3) 1,250 mcg (50,000 unit) cap capsule Take 50,000 Units by mouth one time a week. Every Thursday amantadine HCl (SYMMETREL) 100 mg capsule Take 1 capsule by mouth twice daily. Take 2nd dose before 3pm lisinopril (ZESTRIL, PRINIVIL) 20 mg tablet Take 30 mg by mouth once daily. amoxicillin (AMOXIL) 875 mg tablet Take 1 tablet by mouth twice daily for 10 days. FAMILY HISTORY Problem Relation Age of Onset - Multiple Sclerosis No Family History - other (chron's [Other]) Mother - Cancer Mother - other (lymphoma [Other]) Maternal Grandmother Social History Tobacco Use - Smoking status: Current Every Day Smoker Packs/day: 0.50 - Smokeless tobacco: Never Used - Tobacco comment: for the past 15 years sometimes up to a pack a day. Substance Use Topics - Alcohol use: Yes Comment: once a month, used to drink daily for 13 years then cut down last year. - Drug use: Yes Comment: smokes marijuana, stopped in August, did speed in the past. Objective Physical Exam Vitals and nursing note reviewed. HENT: Right Ear: Tympanic membrane, ear canal and external ear (more content not included)... Normal [facility] ALGN Food Panel RL (for Ref Lab only)on 03-04-2021 Chicken Meat IgE <0.35 Normal 0-0.35 [facility] Reference Lab Comment on above: Performed By: #### F OODRL, RESPR8 #### [facility] Routine Lab [address] [place] [address] #### ANAS #### [facility] Immunology [address] [place] [phone] Chicken Meat-Class 0 Normal 0 [facility] Lab Comment on above: Performed By: #### F RONALD RESPR8 #### [facility] Routine Lab [address] [place] [phone] #### ANAS #### [facility] Immunology [address] [place] [phone] ALGN Food Panel RL (for Ref Lab only)on 02-28-2021 Banana IgE <0.35 Normal <0.35 [facility] Lab Comment on above: Performed By: #### F RONALD RESPR8 #### [facility] Routine Lab [address] [place] [phone] #### ANAS #### [facility] Immunology [address] [place] [phone] Banana-Class 0 Normal 0 [facility] Lab Comment on above: Performed By: #### F RONALD RESPR8 #### [facility] Routine Lab [address] [place] [phone] #### ANAS #### [facility] Immunology [address] [place] [phone] Cheese Cheddar IgE <0.35 Normal 0-0.35 [facility] Lab Comment on above: Performed By: #### F RONALD, RESPR8 #### [facility] Routine Lab [address] [place] [phone] #### ANAS #### [facility] Immunology [address] [place] [phone] Cheese,Cheddar-Class 0 Normal 0 [facility] Reference Lab Comment on above: Performed By: #### F RONALD, RESPR8 #### [facility] Routine Lab [address] [place] [phone] #### ANAS #### [facility] Immunology [address] [place] [phone] [place] IgE <0.35 Normal <0.35 [facility] Lab Comment on above: Performed By: #### F RONALD RESPR8 #### [facility] Routine Lab [address] [place] [phone] #### ANAS #### [facility] Immunology [address] [place] [phone] [place]-Class 0 Normal 0 [facility] Comment on above: Performed By: #### Meli CARDENAS RESPR8 #### [facility] Routine Lab [address] [place] [phone] #### ANAS #### [facility] Immunology [address] [place] [phone] Rice IgE <0.35 Normal <0.35 [facility] Comment on above: Performed By: #### Meli CARDENAS RESPR8 #### [facility] Routine Lab [address] [place] [phone] #### ANAS #### [facility] Immunology [address] [place] [phone] Rice-Class 0 Normal 0 [facility] Comment on above: Performed By: #### Meli CARDENAS RESPR8 #### [facility] Routine Lab [address] [place] [phone] #### ANAS #### [facility] Immunology [address] [place] [phone] ALGN Resp Region 021 A fumigatus IgE <0.35 Normal <0.35 [facility] Lab Comment on above: Performed By: #### Meli CARDENAS RESPR8 #### [facility] Routine Lab [address] [place] [place] [phone] #### ANAS #### [facility] Immunology [phone] A. fumigatus-Class 0 Normal 0 [facility] Lab Comment on above: Performed By: #### Meli CARDENAS RESPR8 #### [facility] Routine Lab [address] [place] [phone] #### ANAS #### [facility] Immunology [address] [place] [phone] A. tenuis-Class 0 Normal 0 [facility] Lab Comment on above: Performed By: #### Meli CARDENAS RESPR8 #### [facility] Routine Lab [address] [place] [phone] #### ANAS #### [facility] Immunology [address] [place] [phone] Alternariatenuis IgE <0.35 Normal <0.35 [facility] Reference Lab Comment on above: Performed By: #### Meli CARDENAS RESPR8 #### [facility] Routine Lab [address] [place] [phone] #### ANAS #### [facility] Immunology [address] [place] [phone] [place] IgE <0.35 Normal 0-0.35 [facility] Lab Comment on above: Performed By: #### Meli CARDENAS RESPR8 #### [facility] Routine Lab [address] [phone] #### ANAS #### [facility] Immunology [address] [place] [phone] [place]-Class 0 Normal 0 [facility] Reference Lab Comment on above: Performed By: #### Meli CARDENAS RESPR8 #### [facility] Routine Lab [address] [place], [place] [address] [phone] #### ANAS #### [facility] Immunology [address] [place] [phone] [place] Tree IgE <0.35 Normal <0.35 [facility] Reference Lab Comment on above: Performed By: #### F RONALD RESPR8 #### [facility] Routine Lab [address] [place] [phone] #### ANAS #### [facility] Immunology [address] [phone] [place] Tree-Class 0 Normal 0 [facility] Reference Lab Comment on above: Performed By: #### F RONALD RESPR8 #### [facility] Routine Lab [address] [place] [phone] #### ANAS #### [facility] Immunology [address] [place] [phone] [place] Tree IgE <0.35 Normal <0.35 [facility] Reference Lab Comment on above: Performed By: #### F RONALD RESPR8 #### [facility] Routine Lab [address] [place] [phone] #### ANAS #### [facility] Immunology [address] [place] [place] [phone] [place]-Class 0 Normal 0 [facility] Reference Lab Comment on above: Performed By: #### F RONALD RESPR8 #### [facility] Routine Lab [address] [place] [phone] #### ANAS #### [facility] Immunology [address] [place] [place] [phone] [place] IgE <0.35 Normal <0.35 [facility] Reference Lab Comment on above: Performed By: #### F RONALD RESPR8 #### [facility] Routine Lab [address] [place] [phone] #### ANAS #### [facility] Immunology [address] [place] [phone] [place]-Class 0 Normal 0 [facility] Lab Comment on above: Performed By: #### Meli CARDENAS RESPR8 #### [facility] Routine Lab [address] [place] [phone] #### ANAS #### [facility] Immunology [address] [place] [phone] [place]/Pecan-Class 0 Normal 0 [facility] Reference Lab Comment on above: Performed By: #### Meli CARDENAS RESPR8 #### [facility] Routine Lab [address] [place] [phone] #### ANAS #### [facility] Immunology [address] [place] [phone] [place] Tree IgE <0.35 Normal <0.35 [facility] Reference Lab Comment on above: Performed By: #### Meli CARDENAS RESPR8 #### [facility] Routine Lab [address] [place] [phone] #### ANAS #### [facility] Immunology [address] [place] [phone] [place] Junip Class 0 Normal 0 [facility] Reference Lab Comment on above: Performed By: #### F RONALD RESPR8 #### [facility] Routine Lab [address] [place] [phone] #### ANAS #### [facility] Immunology [address] [place] [phone] [place] Jun[place] IgE <0.35 Normal <0.35 [facility] Reference Lab Comment on above: Performed By: #### F RONALD RESPR8 #### [facility] Routine Lab [address] [place] [phone] #### ANAS #### [facility] Immunology [address] [place] [phone] Mucor racem.-Class 0 Normal 0 [facility] Reference Lab Comment on above: Performed By: #### F RONALD RESPR8 #### [facility] Routine Lab [address] [place] [phone] #### ANAS #### [facility] Immunology [address] [place] [place] [phone] Mucor racemosus IgE <0.35 Normal <0.35 [facility] Reference Lab Comment on above: Performed By: #### Meli CARDENAS RESPR8 #### [facility] Routine Lab [address] [place] [phone] #### ANAS #### [facility] Immunology [address] [place] [phone] [place] Class 0 Normal 0 [facility] Reference Lab Comment on above: Performed By: #### Meli CARDENAS RESPR8 #### [facility] Routine Lab [address] [place] [phone] #### ANAS #### [facility] Immunology [address] [place] [phone] [place] IgE <0.35 Normal <0.35 [facility] Reference Lab Comment on above: Performed By: #### Meli CARDENAS RESPR8 #### [facility] Routine Lab [address] [place] [phone] #### ANAS #### [facility] Immunology [address] [place] [phone] Icard Tree IgE <0.35 Normal <0.35 [facility] Reference Lab Comment on above: Performed By: #### F RONALD RESPR8 #### [facility] Routine Lab [address] [place] [phone] #### ANAS #### [facility] Immunology [address] [place] [place] [phone] Icard Tree-Class 0 Normal 0 [facility] Reference Lab Comment on above: Performed By: #### Meli CARDENAS RESPR8 #### [facility] Routine Lab [address] [place] [phone] #### ANAS #### [facility] Immunology [address] [place] [phone] Pigweed IgE <0.35 Normal <0.35 [facility] Lab Comment on above: Performed By: #### Meli CARDENAS RESPR8 #### [facility] Routine Lab [address] [place] [phone] #### ANAS #### [facility] Immunology [address] [place] [phone] Pigweed-Class 0 Normal 0 [facility] Lab Comment on above: Performed By: #### Meli CARDENAS RESPR8 #### [facility] Routine Lab [address] [place] [phone] #### ANAS #### [facility] Immunology [address] [place] [place] [phone] Rough [place]-Class 0 Normal 0 [facility] Reference Lab Comment on above: Performed By: #### Meli CARDENAS RESPR8 #### [facility] Routine Lab [address] [place] [phone] #### ANAS #### [facility] Immunology [address] [place] [phone] Rough [place] IgE <0.35 Normal <0.35 [facility] Reference Lab Comment on above: Performed By: #### Meli CARDENAS RESPR8 #### [facility] Routine Lab [address] [phone] #### ANAS #### [facility] Immunology [address] [place] [place] [phone] Tato.Thistle-Class 0 Normal 0 [facility] Reference Lab Comment on above: Performed By: #### Meli CARDENAS RESPR8 #### [facility] Routine Lab [address] [place] [phone] #### ANAS #### [facility] Immunology [address] [place] [phone] Citizen [place] Thistle IgE <0.35 Normal <0.35 [facility] Reference Lab Comment on above: Performed By: #### Meli CARDENAS RESPR8 #### [facility] Routine Lab [address] [place] [phone] #### ANAS #### [facility] Immunology [address] [place] [phone] Short Ragweed IgE <0.35 Normal <0.35 [facility] Reference Lab Comment on above: Performed By: #### Meli CARDENAS RESPR8 #### [facility] Routine Lab [address] [place] [phone] #### ANAS #### [facility] Immunology [address] [place] [phone] Short Ragweed-Class 0 Normal 0 [facility] Reference Lab Comment on above: Performed By: #### Meli CARDENAS RESPR8 #### [facility] Routine Lab [address] [phone] #### ANAS #### [facility] Immunology [address] [place] [phone] Mil[place] Tree Class 0 Normal 0 [facility] Reference Lab Comment on above: Performed By: #### F RONALD RESPR8 #### [facility] Routine Lab [address] [place] [phone] #### ANAS #### [facility] Immunology [address] [place] [phone] Mil[place] Tree IgE <0.35 Normal <0.35 [facility] Reference Lab Comment on above: Performed By: #### F RONALD RESPR8 #### [facility] Routine Lab [address] [phone] #### ANAS #### [facility] Immunology [address] [place] [phone] [place] Tree IgE <0.35 Normal <0.35 [facility] Reference Lab Comment on above: Performed By: #### F RONALD RESPR8 #### [facility] Routine Lab [address] [phone] #### ANAS #### [facility] Immunology [address] [place] [phone] [place] Tree-Class 0 Normal 0 [facility] Reference Lab Comment on above: Performed By: #### Meli CARDENAS RESPR8 #### [facility] Routine Lab [address] [phone] #### ANAS #### [facility] Immunology [address] [place] [place] [phone] White Parminder Class 0 Normal 0 [facility] Reference Lab Comment on above: Performed By: #### F RONALD RESPR8 #### [facility] Routine Lab [address] [place], [place] [address] [phone] #### ANAS #### [facility] Immunology [address] [place] [phone] White Parmin[place] Tree IgE <0.35 Normal <0.35 [facility] Reference Lab Comment on above: Performed By: #### Meli CARDENAS RESPR8 #### [facility] Routine Lab [address] [place] [phone] #### ANAS #### [facility] Immunology [address] [place] [phone] ALGN Food Panel RL (for Ref Lab only)on 02-27-2021 Barley IgE <0.35 Normal <0.35 [facility] Reference Lab Comment on above: Performed By: #### Meli CARDENAS RESPR8 #### [facility] Routine Lab [address] [place] [phone] #### ANAS #### [facility] Immunology [address] [place] [phone] Barley-Class 0 Normal 0 [facility] Reference Lab Comment on above: Performed By: #### Meli CARDENAS RESPR8 #### [facility] Routine Lab [address] [place] [phone] #### ANAS #### [facility] Immunology [address] [place] [phone] Beef IgE <0.35 Normal <0.35 [facility] Reference Lab Comment on above: Performed By: #### Meil CARDENAS RESPR8 #### [facility] Routine Lab [address] [place] [phone] #### ANAS #### [facility] Immunology [address] [place] [phone] Beef-Class 0 Normal 0 [facility] Reference Lab Comment on above: Performed By: #### Meli CARDENAS RESPR8 #### [facility] Routine Lab [address] [place] [phone] #### ANAS #### [facility] Immunology [address] [place] [phone] Cow Milk IgE <0.35 Normal <0.35 [facility] Reference Lab Comment on above: Performed By: #### Meli CARDENAS RESPR8 #### [facility] Routine Lab [address] [place] [phone] #### ANAS #### [facility] Immunology [address] [place] [phone] Egg White IgE <0.35 Normal <0.35 [facility] Reference Lab Comment on above: Performed By: #### Meli CARDENAS RESPR8 #### [facility] Routine Lab [address] [place] [phone] #### ANAS #### [facility] Immunology [address] [place] [phone] Egg White-Class 0 Normal 0 [facility] Reference Lab Comment on above: Performed By: #### Meli CARDENAS RESPR8 #### [facility] Routine Lab [address] [place] [phone] #### ANAS #### [facility] Immunology [address] [place] [phone] Gluten IgE <0.35 Normal <0.35 [facility] Reference Lab Comment on above: Performed By: #### Meli CARDENAS RESPR8 #### [facility] Routine Lab [address] [place] [phone] #### ANAS #### [facility] Immunology [address] [place] [phone] Gluten-Class 0 Normal 0 [facility] Reference Lab Comment on above: Performed By: #### Meli CARDENAS RESPR8 #### [facility] Routine Lab [address] [place] [phone] #### ANAS #### [facility] Immunology [address] [place] [place] [phone] Milk, Cow-Class 0 Normal 0 [facility] Reference Lab Comment on above: Performed By: #### Meli CARDENAS RESPR8 #### [facility] Routine Lab [address] [place] [phone] #### ANAS #### [facility] Immunology [address] [place] [phone] Oat IgE <0.35 Normal <0.35 [facility] Reference Lab Comment on above: Performed By: #### Meli CARDENAS RESPR8 #### [facility] Routine Lab [address] [place] [phone] #### ANAS #### [facility] Immunology [address] [phone] Oat-Class 0 Normal 0 [facility] Reference Lab Comment on above: Performed By: #### Meli CARDENAS RESPR8 #### [facility] Routine Lab [address] [place] [phone] #### ANAS #### [facility] Immunology [address] [phone] Se[place]vel IgE <0.35 Normal <0.35 [facility] Reference Lab Comment on above: Performed By: #### Meli CARDENAS RESPR8 #### [facility] [facility] Routine Lab [address] [phone] #### ANAS #### [facility] Immunology [address] [phone] Sealevel-Class 0 Normal 0 [facility] Reference Lab Comment on above: Performed By: #### Meli CARDENAS RESPR8 #### [facility] Routine Lab [address] [phone] #### ANAS #### [facility] Immunology [address] [phone] Peanut Class 0 Normal 0 [facility] Reference Lab Comment on above: Performed By: #### Meli CARDENAS RESPR8 #### [facility] Routine Lab [address] [place], [place] [address] [phone] #### ANAS #### [facility] Immunology [address] [phone] Peanut IgE <0.35 Normal <0.35 [facility] Reference Lab Comment on above: Performed By: #### F RONALD RESPR8 #### [facility] Routine Lab [address] [phone] #### ANAS #### [facility] Immunology [address] [phone] Pork IgE <0.35 Normal <0.35 [facility] Reference Lab Comment on above: Performed By: #### Meli CARDENAS RESPR8 #### [facility] Routine Lab [address] [phone] #### ANAS #### [facility] Immunology [address] [phone] Pork-Class 0 Normal 0 [facility] Reference Lab Comment on above: Performed By: #### Meli CARDENAS RESPR8 #### [facility] Routine Lab [address] [phone] #### ANAS #### [facility] Immunology [address] [phone] Potato IgE <0.35 Normal <0.35 [facility] Reference Lab Comment on above: Performed By: #### Meli CARDENAS RESPR8 #### [facility] Routine Lab [address] [place], [place] [address] [place] [address] #### ANAS #### [facility] Immunology [address] [phone] Potato-Class 0 Normal 0 [facility] Reference Lab Comment on above: Performed By: #### Meli CARDENAS RESPR8 #### [facility] Routine Lab [address] [phone] #### ANAS #### [facility] Immunology [address] [phone] Herndon IgE <0.35 Normal <0.35 [facility] Reference Lab Comment on above: Performed By: #### F RONALD RESPR8 #### [facility] Routine Lab [address] [phone] #### ANAS #### [facility] Immunology [address] [phone] Herndon-Class 0 Normal 0 [facility] Reference Lab Comment on above: Performed By: #### Meli CARDENAS RESPR8 #### [facility] Routine Lab [address] [phone] #### ANAS #### [facility] Immunology [phone] Soybean IgE <0.35 Normal <0.35 [facility] Reference Lab Comment on above: Performed By: #### Meli CARDENAS RESPR8 #### [facility] Routine Lab [address] [phone] #### ANAS #### [facility] Immunology [address] [phone] Soybean-Class 0 Normal 0 [facility] Reference Lab Comment on above: Performed By: #### Meli CARDENAS RESPR8 #### [facility] Routine Lab [address] [phone] #### ANAS #### [facility] Immunology [address] [phone] Tomato IgE <0.35 Normal <0.35 [facility] Reference Lab Comment on above: Performed By: #### Meli CARDENAS RESPR8 #### [facility] Routine Lab [address] [phone] #### ANAS #### [facility] Immunology [address] [phone] Tomato-Class 0 Normal 0 [facility] Reference Lab Comment on above: Performed By: #### Meli CARDENAS RESPR8 #### [facility] Routine Lab [address] [phone] #### ANAS #### [facility] Immunology [address] [address] Wheat IgE <0.35 Normal <0.35 [facility] Reference Lab Comment on above: Performed By: #### Meli CARDENAS RESPR8 #### [facility] Routine Lab [address] [phone] #### ANAS #### [facility] Immunology [address] [phone] Wheat-Class 0 Normal 0 [facility] Reference Lab Comment on above: Performed By: #### Meli CARDENAS RESPR8 #### [facility] Routine Lab [address] [phone] #### ANAS #### [facility] Immunology [address] [phone] Yeast IgE <0.35 Normal <0.35 [facility] Reference Lab Comment on above: Performed By: #### Meli CARDENAS RESPR8 #### [facility] Routine Lab [address] [phone] #### ANAS #### [facility] Immunology [address] [phone] Yeast-Class 0 Normal 0 [facility] Reference Lab Comment on above: Performed By: #### Meli CARDENAS RESPR8 #### [facility] Routine Lab [address] [phone] #### ANAS #### [facility] Immunology [address] [phone] ALGN Resp Region 8on 021 [place] Grass IgE <0.35 Normal <0.35 [facility] Reference Lab Comment on above: Performed By: #### F RONALD RESPR8 #### [facility] Routine Lab [address] [phone] #### ANAS #### [facility] Immunology [address] [phone] Bermuda Grass-Class 0 Normal 0 [facility] Reference Lab Comment on above: Performed By: #### Meli CARDENAS RESPR8 #### [facility] Routine Lab [address] [phone] #### ANAS #### [facility] Immunology [address] [phone] C.herbarum-Class 0 Normal 0 [facility] Reference Lab Comment on above: Performed By: #### Meli CARDENAS RESPR8 #### [facility] Routine Lab [address] [phone] #### ANAS #### [facility] Immunology [address] [phone] Cat Dander IgE <0.35 Normal <0.35 [facility] Reference Lab Comment on above: Performed By: #### Meli CARDENAS RESPR8 #### [facility] Routine Lab [address] [phone] #### ANAS #### [facility] Immunology [address] [phone] Cat Dander-Class 0 Normal 0 [facility] Reference Lab Comment on above: Performed By: #### F RONALD RESPR8 #### [facility] Routine Lab [address] [phone] #### ANAS #### [facility] Immunology [address] [phone] Clad herbarum IgE <0.35 Normal <0.35 [facility] Reference Lab Comment on above: Performed By: #### F RONALD RESPR8 #### [facility] Routine Lab [address] [phone] #### ANAS #### [facility] Immunology [address] [phone] Cockroach IgE <0.35 Normal <0.35 [facility] Reference Lab Comment on above: Performed By: #### Meli CARDENAS RESPR8 #### [facility] Routine Lab [address] [phone] #### ANAS #### [facility] Immunology [address] [phone] Cockroach-Class 0 Normal 0 [facility] Reference Lab Comment on above: Performed By: #### Meli CARDENAS RESPR8 #### [facility] Routine Lab [address] [phone] #### ANAS #### [facility] Immunology [address] [phone] D pteronyssinus IgE <0.35 Normal 0-0.35 [facility] Reference Lab Comment on above: Performed By: #### Meli CARDENAS RESPR8 #### [facility] Routine Lab [address] [phone] #### ANAS #### [facility] Immunology [address] [phone] D. farinae-Class 0 Normal 0 [facility] Reference Lab Comment on above: Performed By: #### Meli CARDENAS RESPR8 #### [facility] Routine Lab [address] [phone] #### ANAS #### [facility] Immunology [address] [phone] D.pteronyssin-Class 0 Normal 0 [facility] Reference Lab Comment on above: Performed By: #### Meli CARDENAS RESPR8 #### [facility] Routine Lab [address] [phone] #### ANAS #### [facility] Immunology [address] [phone] Derm farinae IgE <0.35 Normal <0.35 [facility] Reference Lab Comment on above: Performed By: #### Meli CARDENAS RESPR8 #### [facility] Routine Lab [address] [phone] #### ANAS #### [facility] Immunology [address] [phone] Dog Dander IgE <0.35 Normal <0.35 [facility] Reference Lab Comment on above: Performed By: #### Meli CARDENAS RESPR8 #### [facility] Routine Lab [address] [phone] #### ANAS #### [facility] Immunology [address] [phone] Dog Dander-Class 0 Normal 0 [facility] Reference Lab Comment on above: Performed By: #### F RONALD RESPR8 #### [facility] Routine Lab [address] [phone] #### ANAS #### [facility] Immunology [address] [phone] Mouse Epith Class 0 Normal 0 [facility] Reference Lab Comment on above: Performed By: #### Meli CARDENAS RESPR8 #### [facility] Routine Lab [address] [phone] #### ANAS #### [facility] Immunology [address] [phone] Mouse Epithelium IgE <0.35 Normal <0.35 [facility] Reference Lab Comment on above: Performed By: #### Meli CARDENAS RESPR8 #### [facility] Routine Lab [address] [phone] #### ANAS #### [facility] Immunology [address] [phone] P. chrysogenum IgE <0.35 Normal <0.35 [facility] Reference Lab Comment on above: Performed By: #### Meli CARDENAS RESPR8 #### [facility] Routine Lab [address] [phone] #### ANAS #### [facility] Immunology [address] [phone] P. chrysogenum IgE 0 Normal 0 [facility] Reference Lab Comment on above: Performed By: #### Meli CARDENAS RESPR8 #### [facility] Routine Lab [address] [phone] #### ANAS #### [facility] Immunology [address] [phone] Fox Grass IgE <0.35 Normal <0.35 [facility] Reference Lab Comment on above: Performed By: #### Meli CARDENAS RESPR8 #### [facility] Routine Lab [phone] #### ANAS #### [facility] Immunology [address] [address] Fox Grass-Class 0 Normal 0 [facility] Reference Lab Comment on above: Performed By: #### F RONALD RESPR8 #### [facility] Routine Lab [address] [place] [phone] #### ANAS #### [facility] Immunology [address] [place] [phone] ANAon 02-27-2021 SANGEETHA by EIA 0.3 OD Ratio Normal [facility] Reference Lab Comment on above: Performed By: #### F RONALD RESPR8 #### [facility] Routine Lab [address] [place] [phone] #### ANAS #### [facility] Immunology [address] [place] [phone] SANGEETHA by EIA, Qual NEGAT Normal Negative [facility] Reference Lab Comment on above: Performed By: #### F RONALD RESPR8 #### [facility] Routine Lab [address] [place] [phone] #### ANAS #### [facility] Immunology [address] [place] [phone] CBC and Differentialon 12-29 Abs Baso 0.04 k/uL Normal <0.11 [facility] Reference Lab Comment on above: Performed By: #### L IPB, CMP, CBCDIF #### [facility] Routine Lab [address] [phone] Abs Wyoming 0.49 k/uL Normal <0.87 [facility] Reference Lab Comment on above: Performed By: #### L IPB, CMP, CBCDIF #### [facility] Routine Lab [address] [phone] Abs Neut 4.10 k/uL Normal 1.45-7.50 [facility] Reference Lab Comment on above: Performed By: #### L IPB, CMP, CBCDIF #### [facility] Routine Lab [address] [address] Absolute nRBC <0.01 Normal <0.01 [facility] Reference Lab Comment on above: Performed By: #### L IPB, CMP, CBCDIF #### [facility] Routine Lab [address] [address] Basophils/100 WBC (Bld) 0.6 % Normal [facility] Reference Lab Comment on above: Performed By: #### L IPB, CMP, CBCDIF #### [facility] Routine Lab [address] [address] DTYPE ADIFF Normal [facility] Reference Lab Comment on above: Performed By: #### L IPB, CMP, CBCDIF #### [facility] Routine Lab [address] [address] Eosinophils (Bld) [#/Vol] 0.22 10*3/uL Normal <0.46 [facility] Reference Lab Comment on above: Performed By: #### L IPB, CMP, CBCDIF #### [facility] Routine Lab [address] [address] Eosinophils/100 WBC (Bld) 3.3 % Normal [facility] Reference Lab Comment on above: Performed By: #### L IPB, CMP, CBCDIF #### [facility] Routine Lab [address] [address] Erythrocyte distribution width (RBC) [Ratio] 13.6 % Normal 11.5-15.0 [facility] Reference Lab Comment on above: Performed By: #### L IPB, CMP, CBCDIF #### [facility] Routine Lab [address] [address] Hematocrit (Bld) [Volume fraction] 50.3 % Normal 39.0-51.0 [facility] Reference Lab Comment on above: Performed By: #### L IPB, CMP, CBCDIF #### [facility] Routine Lab [address] [place], [place] [address] Hemoglobin (Bld) [Mass/Vol] 16.3 g/dL Normal 13.0-17.0 [facility] Reference Lab Comment on above: Performed By: #### L IPB, CMP, CBCDIF #### [facility] Routine Lab [address] [address] Lymphocytes (Bld) [#/Vol] 1.75 10*3/uL Normal 1.00-4.00 [facility] Reference Lab Comment on above: Performed By: #### L IPB, CMP, CBCDIF #### [facility] Routine Lab [address] [address] Lymphocytes/100 WBC (Bld) 26.5 % Normal [facility] Reference Lab Comment on above: Performed By: #### L IPB, CMP, CBCDIF #### [facility] Routine Lab [address] [place] [address] MCH 29.4 pG Normal 26.0-34.0 [facility] Reference Lab Comment on above: Performed By: #### L IPB, CMP, CBCDIF #### [facility] Routine Lab [address] [phone] MCHC (RBC) [Mass/Vol] 32.4 g/dL Normal 30.5-36.0 [facility] Reference Lab Comment on above: Performed By: #### L IPB, CMP, CBCDIF #### [facility] Routine Lab [address] [address] MCV (RBC) [Entitic vol] 90.8 fL Normal 80.0-100.0 [facility] Reference Lab Comment on above: Performed By: #### L IPB, CMP, CBCDIF #### [facility] Routine Lab [address] [phone] Monocytes/100 WBC (Bld) 7.4 % Normal [facility] Reference Lab Comment on above: Performed By: #### L IPB, CMP, CBCDIF #### [facility] Routine Lab [address] [place], [place] [address] Neutrophils/100 WBC (Bld) 62.2 % Normal [facility] Reference Lab Comment on above: Performed By: #### L IPB, CMP, CBCDIF #### [facility] Routine Lab [address] [address] NRBCs 0.0 /100 WBC Normal 0 [facility] Reference Lab Comment on above: Performed By: #### L IPB, CMP, CBCDIF #### [facility] Routine Lab [address] [address] Platelet mean volume (Bld) [Entitic vol] 9.9 fL Normal 9.0-12.7 [facility] Reference Lab Comment on above: Performed By: #### L IPB, CMP, CBCDIF #### [facility] Routine Lab [address] [address] Platelets (Bld) [#/Vol] 256 10*3/uL Normal 150-400 [facility] Reference Lab Comment on above: Performed By: #### L IPB, CMP, CBCDIF #### [facility] Routine Lab [address] [address] RBC (Bld) [#/Vol] 5.54 10*6/uL Normal 4.20-6.00 [facility] Reference Lab Comment on above: Performed By: #### L IPB, CMP, CBCDIF #### [facility] Routine Lab [address] [address] WBC (Bld) [#/Vol] 6.60 10*3/uL Normal 3.70-11.00 [facility] Reference Lab Comment on above: Performed By: #### L IPB, CMP, CBCDIF #### [facility] Routine Lab [address] [place], [place] [address] Comp Metabolic Panelon 12-29 Albumin [Mass/Vol] 4.5 g/dL Normal 3.9-4.9 [facility] Reference Lab Comment on above: Performed By: #### L IPB, CMP, CBCDIF #### [facility] Routine Lab [address] [place], [place] [address] ALP [Catalytic activity/Vol] 60 U/L Normal 38-113 [facility] Reference Lab Comment on above: Performed By: #### L IPB, CMP, CBCDIF #### [facility] Routine Lab [address] [place], [place] [address] ALT [Catalytic activity/Vol] 31 U/L Normal 10-54 [facility] Reference Lab Comment on above: Performed By: #### L IPB, CMP, CBCDIF #### [facility] Routine Lab [address] [place], [place] [address] Anion gap [Moles/Vol] 12 mmol/L Normal 9-18 [facility] Lab Comment on above: Performed By: #### L IPB, CMP, CBCDIF #### [facility] Routine Lab [address] [place], [place] [address] AST [Catalytic activity/Vol] 29 U/L Normal 14-40 [facility] Reference Lab Comment on above: Performed By: #### L IPB, CMP, CBCDIF #### [facility] Routine Lab [address] [place], [place] [address] Bilirubin [Mass/Vol] 0.6 mg/dL Normal 0.2-1.3 [facility] Reference Lab Comment on above: Performed By: #### L IPB, CMP, CBCDIF #### [facility] Routine Lab [address] [place], [place] [address] Calcium [Mass/Vol] 9.4 mg/dL Normal 8.5-10.2 [facility] Reference Lab Comment on above: Performed By: #### L IPB, CMP, CBCDIF #### [facility] Routine Lab [address] [place], [place] [address] Chloride [Moles/Vol] 104 mmol/L Normal 97-105 [facility] Lab Comment on above: Performed By: #### L IPB, CMP, CBCDIF #### [facility] Routine Lab [address] [address] CO2 [Moles/Vol] 25 mmol/L Normal 22-30 [facility] Lab Comment on above: Performed By: #### L IPB, CMP, CBCDIF #### [facility] Routine Lab [address] [address] Creatinine [Mass/Vol] 0.82 mg/dL Normal 0.73-1.22 [facility] Lab Comment on above: Performed By: #### L IPB, CMP, CBCDIF #### [facility] Routine Lab [address] [place], [place] [address] eGFR- Amer. >60 Normal [facility] Reference Lab Comment on above: Performed By: #### L IPB, CMP, CBCDIF #### [facility] Routine Lab [address] [place], [place] [address] eGFR-All Other Races >60 Normal [facility] Reference Lab Comment on above: Performed By: #### L IPB, CMP, CBCDIF #### [facility] Routine Lab [address] [place], [place] [address] Glucose [Mass/Vol] 69 mg/dL Low 74-99 [facility] Reference Lab Comment on above: Performed By: #### L IPB, CMP, CBCDIF #### [facility] Routine Lab [address] [place], [place] [address] Potassium [Moles/Vol] 4.1 mmol/L Normal 3.7-5.1 [facility] Reference Lab Comment on above: Performed By: #### L IPB, CMP, CBCDIF #### [facility] Routine Lab [address] [place], [place] [address] Protein [Mass/Vol] 7.2 g/dL Normal 6.3-8.0 [facility] Reference Lab Comment on above: Performed By: #### L IPB, CMP, CBCDIF #### [facility] Routine Lab [address] [place], [place] [address] Sodium [Moles/Vol] 141 mmol/L Normal 136-144 [facility] Reference Lab Comment on above: Performed By: #### L IPB, CMP, CBCDIF #### [facility] Routine Lab [address] [place], [place] [address] Urea nitrogen [Mass/Vol] 17 mg/dL Normal 9-24 [facility] Reference Lab Comment on above: Performed By: #### L IPB, CMP, CBCDIF #### [facility] Routine Lab [address] [place], [place] [address] Lipid Panel, Basicon 021 Cholesterol [Mass/Vol] 210 mg/dL High <200 [facility] Reference Lab Comment on above: Performed By: #### L IPB, CMP, CBCDIF #### [facility] Routine Lab [address] [place], [place] [address] Cholesterol in HDL [Mass/Vol] 25 mg/dL Low >39 [facility] Reference Lab Comment on above: Performed By: #### L IPB, CMP, CBCDIF #### [facility] Routine Lab [address] [place], [place] [address] Cholesterol in LDL [Mass/Vol] 151 mg/dL High <100 [facility] Reference Lab Comment on above: Performed By: #### L IPB, CMP, CBCDIF #### [facility] Routine Lab [address] [place], [place] [address] Cholesterol in VLDL [Mass/Vol] 34 mg/dL High <30 [facility] Reference Lab Comment on above: Performed By: #### L IPB, CMP, CBCDIF #### [facility] Routine Lab [phone] Cholesterol non HDL [Mass/Vol] 185 mg/dL High <130 [facility] Reference Lab Comment on above: Performed By: #### L IPB, CMP, CBCDIF #### [facility] Routine Lab [phone] LDL:HDL Ratio 6.04 High <2.54 [facility] Reference Lab Comment on above: Performed By: #### L IPB, CMP, CBCDIF #### [facility] Routine Lab [address] [phone] TC:HDL Ratio 8.40 High <5.10 [facility] Reference Lab Comment on above: Performed By: #### L IPB, CMP, CBCDIF #### [facility] Routine Lab [phone] Triglyceride [Mass/Vol] 168 mg/dL High <150 [facility] Reference Lab Comment on above: Performed By: #### L IPB, CMP, CBCDIF #### [facility] Routine Lab [address] [phone] Fasting Time UN Normal [facility] Reference Lab Comment on above: Performed By: #### L IPB, CMP, CBCDIF #### [facility] Routine Lab [address] [phone] Progress note 03-27-2021 Note Date & Type Note Facility 03-27-2021 Note HNO ID: [id number] Author: Tamanna Dixon APRN.[employer] Service: ? Author Type: Nurse Practitioner Type: Progress Notes Filed: 03/27/2021 10:31 AM Note Text: Subjective HPI Jose Sánchez is a 45 year old male who presents with left ear pain, tinnitus, decreased hearing for the last 3 days. Has had an occasional cough. and daughter currently ill with URI symptoms. He states the pain is not that bad . He has not taken any medication at home today. Review of Systems Constitutional: Negative for chills and fever. HENT: Positive for ear pain, hearing loss and tinnitus. Negative for congestion and sore throat. Respiratory: Positive for cough. Negative for shortness of breath. Cardiovascular: Negative for chest pain. Gastrointestinal: Negative for diarrhea, nausea and vomiting. Musculoskeletal: Negative for myalgias. Skin: Negative for itching and rash. Neurological: Negative for headaches. BP 152/100 Pulse 76 Temp 36.7 ?C (98 ?F) (Tympanic) Resp 18 Wt 102.2 kg (225 lb 3.2 oz) SpO2 98% BMI 34.24 kg/m? PAST MEDICAL HISTORY Diagnosis Date - Anxiety 2012 - HTN (hypertension) 2012 - MS (multiple sclerosis) (HCC) PAST SURGICAL HISTORY Procedure Laterality Date - NONE ALLERGIES Patient has no known allergies. MEDICATIONS cholecalciferol, Vitamin D3, (VITAMIN D3) 1,250 mcg (50,000 unit) cap capsule Take 50,000 Units by mouth one time a week. Every Thursday amantadine HCl (SYMMETREL) 100 mg capsule Take 1 capsule by mouth twice daily. Take 2nd dose before 3pm lisinopril (ZESTRIL, PRINIVIL) 20 mg tablet Take 30 mg by mouth once daily. amoxicillin (AMOXIL) 875 mg tablet Take 1 tablet by mouth twice daily for 10 days. FAMILY HISTORY Problem Relation Age of Onset - Multiple Sclerosis No Family History - other (chron's [Other]) Mother - Cancer Mother - other (lymphoma [Other]) Maternal Grandmother Social History Tobacco Use - Smoking status: Current Every Day Smoker Packs/day: 0.50 - Smokeless tobacco: Never Used - Tobacco comment: for the past 15 years sometimes up to a pack a day. Substance Use Topics - Alcohol use: Yes Comment: once a month, used to drink daily for 13 years then cut down last year. - Drug use: Yes Comment: smokes marijuana, stopped in August, did speed in the past. Objective Physical Exam Vitals and nursing note reviewed. HENT: Right Ear: Tympanic membrane, ear canal and external ear normal. Left Ear: Ear canal and external ear normal. A middle ear effusion is present. Tympanic membrane is injected. Nose: Nose normal. Mouth/Throat: Pharynx: Uvula midline. No oropharyngeal exudate or posterior oropharyngeal erythema. Cardiovascular: Rate and Rhythm: Normal rate and regular rhythm. Heart sounds: Normal heart sounds. Pulmonary: Effort: Pulmonary effort is normal. No respiratory distress. Breath sounds: Normal breath sounds. No wheezing or rales. Musculoskeletal: Cervical back: Neck supple. Lymphadenopathy: Cervical: No cervical adenopathy. Skin: General: Skin is warm and dry. Findings: No erythema or rash. Neurological: Mental Status: He is alert. ASSESSMENT/PLAN: 1. Other acute nonsuppurative otitis media of left ear, recurrence not specified - ICD9: 381.00, ICD10: H65.192 - Will begin treatment with Amoxicillin for 10 days - Supportive care with plenty of fluids, rest, and analgesia prn. - AMOXICILLIN 875 MG TABLET - Follow-up with your PCP in 3-5 days if symptoms have not improved or sooner if symptoms worsen - Discussed red flags and need for immediate medical evaluation if any occur. - Discussed supportive care treatment with fluids, rest and analgesia. - Discussed expected course of illness Tamanna Dixon, LINDA.[employer] [facility] Summary Purpose Family History No Family History Records FoundNo Family History Records Found Advance Directives No Advanced Directives Records FoundNo Advanced Directives Records Found Additional Source Comments (unrecognized sect ion and content) No Status Records FoundNo Status Records Found INFORMATION SOURCE (unrecogn ized section and content) DATE CREATED AUTHOR 08/13/2021 [facility] DATE CREATED AUTHOR AUTHORSaranya TRAN 02/22/[address] [facility] FOR RECORDS PERTAINING TO PATIENTS WHO ARE OR HAVE BEEN ENROLLED IN A CHEMICAL DEPENDENCY/SUBSTANCEABUSE PROGRAM, SOME INFORMATION MAY BE OMITTED. This clinical summary was aggregated from multiple sources. Caution should be exercised in using it in the provision of clinical care. This summary normalizes information from multiple sources, and as a consequence, information in this document may materially change the coding, format and clinical context of patient data. In addition, data may be omitted in some cases. CLINICAL DECISIONS SHOULD BE BASED ON THE PRIMARY CLINICAL RECORDS. [employer] provides no warranty or guarantee of the accuracy or completeness of information in this document.
[2024-06-11] MEDS: Nitroglycerin SL (ED/IMG/CATH) 0.4 MG TABLET SL (17:36)
[2024-06-11 17:48] LABS: Absolute Neutrophil Count 3.7 X10^3/uL (2.0-7.7); Basophil# 0.05 X10^3/uL; Basophil% 0.7 % (0-1); Eosinophils% 2.9 % (0-5); Hemoglobin 16.1 g/dL (13.0-16.5); Lymphocyte % 33.5 % (19-41); Mean Corp Hgb Conc 34.3 g/dL (32-36); Mean Corpuscular Hgb 29.5 pg (27.0-32.0); Mean Corpuscular Volume 86.2 fL (80-94); Mean Platelet Vol. 9.2 fl (6.2-12.0); Monocyte% 8.7 % (0-10); NRBC Flagged by Analyzer 0 % (0-5); Neutrophil # 3.68 X10^3/uL (2.7-7.7); Neutrophil % 53.8 % (47-70); Platelet Count 255 K/mm3 (150-450); RBC Distribution Width CV 12.9 % (11.6-14.6); RBC Distribution Width SD 39.8 fl (35.1-43.9); Red Blood Count 5.45 M/mm3 (4.6-6.2); White Blood Count 6.9 K/mm3 (4.4-11.0)
[2024-06-11 18:13] LABS: Anion Gap 5 (5-15); BUN 18 mg/dL (7-18); BUN/Creat Ratio 16.8 RATIO (10-20); Calcium,Total 8.8 mg/dL (8.5-10.1); Chloride 110 mmol/L (98-107); Creatinine, Serum 1.07 mg/dL (0.70-1.30); EST Glomerular Filtration Rate 79 mL/min (>60); Est Glom Filt Rate - Afr Amer 95 mL/min (>60); Estimated Creatinine Clearance 96.81 ml/min; Glucose 118 mg/dL (74-106); Potassium 3.6 mmol/L (3.5-5.1); Sodium Level 140 mmol/L (136-145); Troponin-I HS (w/2H Reflex) 10 pg/mL (3.0-78.0)
[2024-06-11 19:44] LABS: Reflex Troponin-HS? (from REC) Y
[2024-06-11 20:22] LABS: Troponin-I HS 10 pg/mL (3.0-78.0)
== END 2024-06-11 20:54 | disposition home or self-care (01) ==
PROVIDERS: Emergency Provider Emergency Medicine; PCP Nurse Practitioner Family; Visit Provider Emergency Medicine
DX: R07.9 Chest pain, unspecified (principal); E78.5 Hyperlipidemia, unspecified; I10 Essential (primary) hypertension; F41.8 Other specified anxiety disorders; Z79.899 Other long term (current) drug therapy; F17.210 Nicotine dependence, cigarettes, uncomplicated
CPT/HCPCS: 71045; 80048; 84484; 85025; 93005; 99283; A4216